=== PATIENT | female | born 1995 | race Caucasian/White ===

== ENCOUNTER 2019-05-17 11:32 | Emergency (ER) | payer OTHER ==
[~2019-05-17] VITALS: Ht 162.6 cm; Wt 80.3 kg
[2019-05-17 11:40] VITALS: Ht 162.6 cm; Wt 80.3 kg
[2019-05-17 14:20] VITALS: BP 105/68
== END 2019-05-17 14:20 | disposition home or self-care (01) ==
LOC: ED 11:32
DX: J36 Peritonsillar abscess (principal)
CPT/HCPCS: J0696; J1100; J1885; J3490; J7030

== ENCOUNTER 2019-08-14 11:09 | Emergency (ER) | payer OTHER ==
[~2019-08-14] VITALS: Ht 162.6 cm; Wt 82.6 kg
[2019-08-14 11:21] VITALS: Ht 162.6 cm; Wt 82.6 kg
[2019-08-14 12:50] VITALS: BP 103/66
== END 2019-08-14 13:00 | disposition home or self-care (01) ==
LOC: ED 11:09
DX: J03.90 Acute tonsillitis, unspecified (principal)
CPT/HCPCS: J0561; J1100; J1885